=== PATIENT | male | born 1940 | race Caucasian/White ===

== ENCOUNTER 2016-09-28 15:09 | Outpatient (CLI) | payer OTHER ==
[~2016-09-28 15:09] MED LIST: ACETAMINOPHEN P1 TA1 PO; ARISTOCORT EQUI15 GM TOP; ASPIRIN ADULT L81 MG PO; CALCIUM CARBON500 MG PO; CALCIUM CITRATE PO; CEFTIN500 MG PO; CEPHALEXIN500 MG PO; CLINDAMYCIN HC300 MG PO; CLOTRIMAZOLE1 %; CO Q 1010 MG PO; COQ PO; COQ10100 MG PO; CYMBALTA60 MG PO; DIABETA5 MG PO; DIAZEPAM10 MG PO; DIAZEPAM5 MG PO; DITROPAN EQUIVAL5 MG PO; ETODOLAC ER400 MG PO; FLORASTOR250 MG; FLORASTOR250 MG PO; FLUCONAZOLE150 MG PO; FUROSEMIDE20 MG PO; HYTRIN1 MG PO; LEVEMIR FL100 UNIT/M SC; LEVOFLOXACIN500 MG PO; LOTRIMIN30 GM TOP; MARIJUANA; MIRALAX EQUIVAL17 GM PO; MULTIPLE VITAMIN PO; NEURONTIN100 MG PO; NITROSTAT0.4 MG SL; NORTRIPTYLINE H25 MG PO; PERCOCET1 TA1 PO; PRAVACHOL20 MG PO; TRIAMCINOLONE A0.11; TYLENOL PM EXTR1 TAB PO; UMECLIDINIUM; VANCOMYCIN 50 MG/ML IV; VILANTEROL; [UNRECOGNIZED DRUG - OTHER] PO; [UNRECOGNIZED DRUG - OTHER] PO; [UNRECOGNIZED DRUG - OTHER] PO
--- NOTE | 2016-09-28 15:54 | DIAGNOSTIC IMAGING REPORT ---
PROCEDURE: XR FOOT 3 VIEWS - RIGHT INDICATION: NON HEALING WOUND TECHNIQUE: Three views. COMPARISON: None. FINDINGS: Soft tissue swelling and thickening along the plantar lateral aspect of the foot adjacent to the fifth metatarsal-phalangeal joint. No new cortical erosive change or periostitis. The joint is in normal alignment. IMPRESSION: 1. no evidence of bony destruction or osteomyelitis.
== END 2016-09-28 23:00 ==
LOC: LAB SRH 15:09
DX: L97.819 Non-pressure chronic ulcer of other part of right lower leg with unspecified severity (principal)

== ENCOUNTER 2016-10-03 14:58 | Outpatient (CLI) | payer OTHER | END 2016-10-03 23:00 | LOC: RT SRH 14:58 | DX: Z01.810 Encounter for preprocedural cardiovascular examination (principal) ==

== ENCOUNTER 2016-11-24 10:51 | Outpatient (CLI) | payer OTHER ==
--- NOTE | 2016-11-24 12:40 | DIAGNOSTIC IMAGING REPORT ---
PROCEDURE: XR FOOT 3 VIEWS BILATERAL INDICATION: WOUND TECHNIQUE: Three views. COMPARISON: Foot films dated 09/28/2016 and 01/27/2016 FINDINGS: RIGHT FOOT: No new cortical erosive change or periostitis. The joint is in normal alignment. LEFT FOOT: No new cortical erosive change or periostitis. The joint is in normal alignment. IMPRESSION: 1. No change, no evidence of bony destruction or osteomyelitis.
== END 2016-11-24 23:00 ==
LOC: XR SRH 10:51
DX: E11.621 Type 2 diabetes mellitus with foot ulcer (principal); L97.413 Non-pressure chronic ulcer of right heel and midfoot with necrosis of muscle